=== PATIENT | male | born 1980 | race African-American/Black ===

== ENCOUNTER 2019-02-09 10:34 | Emergency (ER) | payer OTHER ==
[~2019-02-09] VITALS: Ht 167.6 cm; Wt 94.4 kg
[~2019-02-09 10:34] MED LIST: CEPH-443 PO; IBUP-1542 PO; SULF1TAB31 PO
[2019-02-09 11:00] VITALS: Ht 167.6 cm; Wt 94.4 kg
[2019-02-09 11:31] VITALS: BP 146/91; PULSE 66; RESP 18
--- NOTE | 2019-02-09 13:02 | ERD ---
ER Documentation Chief Complaint Chief Complaint PAIN, REDNESS AND SWELLING TO LEFT AXILLARY AREA HPI 38-year-old male presenting with an abscess to his left axilla. He states is been there about a month and it started after he cut himself when shaving. Patient has not applied any medications or taking any medications for the symptoms. He denies any weight loss or night sweats. Denies any shortness of breath or coughing. Denies other medical problems. NKDA. Surgical history denies. Social history denies ROS All systems reviewed and are negative except as per history of present illness. Medications Home Meds Active Scripts Sulfamethoxazole/Trimethoprim* (Bactrim Ds* Tablet) 1 Each Tablet, 1 TAB PO BID, #14 TAB Prov:UZIEL HARRINGTON PA-C 02/09/19 Cephalexin* (Keflex*) 500 Mg Capsule, 500 MG PO QID for 7 Days, CAP Prov:UZIEL HARRINGTON PA-C 02/09/19 Allergies Allergies: Coded Allergies: No Known Allergy (Unverified , 02/09/19) PMhx/Soc Medical and Surgical Hx: pt denies Medical Hx, pt denies Surgical Hx Hx Alcohol Use: No Hx Substance Use: No Hx Tobacco Use: No Smoking Status: Never smoker FmHx Family History: No diabetes, No coronary disease, No other Physical Exam Vitals Vital Signs Date Temp Pulse Resp B/P (MAP) Pulse Ox O2 O2 Flow FiO2 Time Delivery Rate 02/09/19 98.5 66 18 146/91 96 11:31 (109) 02/09/19 98.3 63 18 156/82 97 11:00 (106) Physical Exam GENERAL: The patient is well-appearing, well-nourished, in no acute distress HEENT: Atraumatic. Conjunctivae are pink. Pupils equal, round, and reactive to light. There is no scleral icterus. Tympanic membranes clear bilaterally. Oropharynx clear. CHEST: Clear to auscultation bilaterally. There are no rales, wheezes or rhonchi. HEART: Regular rate and rhythm. No murmurs, clicks, rubs or gallops. EXTREMITIES: Equal pulses bilaterally. There is no peripheral clubbing, cyanosis or edema. No focal swelling or erythema. Full range of motion. NEUROLOGIC: Alert and oriented. Cranial nerves II through XII intact. Motor strength in all 4 extremities with 5 out of 5 strength. Sensation grossly intact. Normal speech and gait. SKIN: 1 x 1 cm firm nodule noted under the axilla with no lymphatic streaking. Procedures/MDM MDM: 38-year-old male presenting with a nodule under the left axilla. I have considered abscess and do not feel an I&D is indicated at this time. The nodule is firm and not fluctuant. Patient is discharged with antibiotics and told to apply warm compresses. I recommend patient to return in 3 days as I&D may be indicated at that time. I have low suspicion for malignancy causing lymphadenopathy. Patient does not have other symptoms associated and states this happened after he cut himself which lends me to think this is infectious. Patient is discharged with strict ER precautions. All questions answered at discharge Departure Diagnosis: Primary Impression: Abscess Condition: Stable Patient Instructions: Abscess, Antiobiotic Treatment Only Referrals: [facility] YOU HAVE RECEIVED A MEDICAL SCREENING EXAM AND THE RESULTS INDICATE THAT YOU DO NOT HAVE A CONDITION THAT REQUIRES URGENT TREATMENT IN THE EMERGENCY DEPARTMENT. FURTHER EVALUATION AND TREATMENT OF YOUR CONDITION CAN WAIT UNTIL YOU ARE SEEN IN YOUR DOCTORS OFFICE WITHIN THE NEXT 1-2 DAYS. IT IS YOUR RESPONSIBILITY TO MAKE AN APPOINTMENT FOR FOLOW-UP CARE. IF YOU HAVE A PRIMARY DOCTOR --you should call your primary doctor and schedule an appointment IF YOU DO NOT HAVE A PRIMARY DOCTOR YOU CAN CALL OUR PHYSICIAN REFERRAL HOTLINE AT IF YOU CAN NOT AFFORD TO SEE A PHYSICIAN YOU CAN CHOSE FROM THE FOLLOWING [facility] [address] [facility]. [facility] [address] [facility] [facility] [address] [facility] [facility] [address] [facility]. [facility] [address] [facility]. [facility]. [address] Additional Instructions: FOLLOW UP WITH YOUR PRIMARY CARE PHYSICIAN TOMORROW.Return to this facility if you are not improving as expected. UZIEL HARRINGTON PA-C Feb 09, 2019 13:02
== END 2019-02-09 11:31 | disposition home or self-care (01) ==
LOC: FTE 10:34
DX: L02.412 Cutaneous abscess of left axilla (principal)
CPT/HCPCS: 99283

== ENCOUNTER 2019-02-19 23:06 | Emergency (ER) | payer OTHER ==
[~2019-02-19] VITALS: Ht 172.7 cm; Wt 94.3 kg
[2019-02-19 23:09] VITALS: BP 145/95; PULSE 63; RESP 18; Ht 172.7 cm; Wt 94.3 kg
== END 2019-02-20 00:49 | disposition home or self-care (01) ==
LOC: FTE 23:06
DX: S61.214A Laceration without foreign body of right ring finger without damage to nail, initial encounter (principal); W23.0XXA Caught, crushed, jammed, or pinched between moving objects, initial encounter; Y92.9 Unspecified place or not applicable; Z23 Encounter for immunization
CPT/HCPCS: 73130; 90471; 90715; Z7502; Z7610